=== PATIENT | male | born 1995 | race Caucasian/White ===

== ENCOUNTER 2023-03-07 04:05 | Emergency (ER) | payer OTHER ==
[~2023-03-07] VITALS: Ht 170.2 cm; Wt 77.0 kg
[2023-03-07 04:14] VITALS: TEMP 98.1
[2023-03-07] MEDS ORDERED: RIZA10TA42 PO (05:10)
[2023-03-07] MEDS ORDERED: DEXAMETHASONE 4 MG TABLET PO ONE (05:15)
[2023-03-07] MEDS ORDERED: ONDANSETRON HCL 4 MG TABLET PO ONE (05:15)
[2023-03-07] MEDS ORDERED: KETOROLAC TROMETHAMINE 60 MG/2 ML VIAL IM ONE (05:15)
[2023-03-07 05:36] VITALS: BP 123/91; PULSE 71; RESP 16
== END 2023-03-07 05:37 | disposition home or self-care (01) ==
LOC: EMS 04:05
DX: G43.909 Migraine, unspecified, not intractable, without status migrainosus (principal); J18.9 Pneumonia, unspecified organism; F12.90 Cannabis use, unspecified, uncomplicated
CPT/HCPCS: 99283; 96372; J8540; J1885; Q0162